=== PATIENT | female | born 1950 | race Caucasian/White ===

== ENCOUNTER 2019-01-15 20:06 | Emergency (ER) | payer MEDICARE ==
[~2019-01-15] VITALS: Ht 162.6 cm; Wt 81.8 kg
[~2019-01-15 20:06] MED LIST: ASPI-611 PO; METO25TA6 PO; NITR0.4T SL; RANI-388 PO; ROSU20TA2 PO
--- NOTE | 2019-01-15 21:23 | NUR ---
PT GIVEN ICE PACKS FOR BOTH ANKLES.
[2019-01-15] MEDS ORDERED: ondansetron 4mg rapidly disintigrating tab PO ONE (21:45)
[2019-01-15] MEDS ORDERED: HYDROcodone/acetaminophen 5mg/325mg tablet PO ONE (21:45)
[2019-01-15] MEDS ORDERED: HYDR-4383 PO (22:07)
[2019-01-15] MEDS ORDERED: ONDA4TAB6 PO (22:07)
--- NOTE | 2019-01-15 23:17 | NUR ---
lock technician is with patient, splinting bilaterl ankle fractures.
--- NOTE | 2019-01-15 23:47 | NUR ---
Crutch/Walker training done with patient.
[2019-01-15] MEDS ORDERED: WALKERFR (23:52)
[2019-01-16 00:02] VITALS: BP 140/75
== END 2019-01-16 00:10 | disposition home or self-care (01) ==
LOC: ER 20:07
DX: S82.852A Displaced trimalleolar fracture of left lower leg, initial encounter for closed fracture (principal); S82.832A Other fracture of upper and lower end of left fibula, initial encounter for closed fracture; S82.831A Other fracture of upper and lower end of right fibula, initial encounter for closed fracture; I10 Essential (primary) hypertension; K21.9 Gastro-esophageal reflux disease without esophagitis; G89.29 Other chronic pain; Z88.6 Allergy status to analgesic agent; Z79.82 Long term (current) use of aspirin; Z79.899 Other long term (current) drug therapy; W01.0XXA Fall on same level from slipping, tripping and stumbling without subsequent striking against object, initial encounter; Y93.01 Activity, walking, marching and hiking; Y92.89 Other specified places as the place of occurrence of the external cause; Y99.8 Other external cause status
CPT/HCPCS: 73610; 99284

== ENCOUNTER 2024-08-12 09:56 | Day surgery (SDC) | payer MEDICARE, OTHER ==
[2024-08-09 10:35] LABS: BASOPHILS # (AUTO) 0.1 X10'3 (0-0.2); BASOPHILS % (AUTO) 0.8 % (0-1); EOSINOPHILS # (AUTO) 0.2 X10'3 (0-0.9); EOSINOPHILS % (AUTO) 3.2 % (0-6); HEMOGLOBIN 13.9 g/dl (12.0-16.0); LYMPHOCYTES % (AUTO) 31.8 % (21-51); MEAN CORPUSCULAR HEMOGLOBIN 30.3 PG (27.0-31.0); MEAN CORPUSCULAR HGB CONC 33.9 g/dL (33.0-36.5); MEAN CORPUSCULAR VOLUME 89.6 FL (78-98); MEAN PLATELET VOLUME 8.7 FL (7.4-10.4); MONOCYTES # (AUTO) 0.5 X10'3 (0-0.9); MONOCYTES % (AUTO) 7.6 % (2-12); NEUTROPHILS # (AUTO) 3.5 X10'3 (1.8-7.7); NEUTROPHILS % (AUTO) 56.6 % (42-75); PLATELET COUNT 214 X10'3 (140-440); RED BLOOD COUNT 4.58 X10'6 (4.20-5.60); RED CELL DISTRIBUTION WIDTH 14.2 % (11.5-14.5); WHITE BLOOD COUNT 6.2 X10'3 (4.5-11.0)
[2024-08-09 10:46] LABS: APTT 28 SECONDS (22-32); PROTHROMBIN TIME 10.2 SECONDS (9.0-12.0)
[2024-08-09 10:49] LABS: ALBUMIN 3.7 G/DL (3.4-5.0); ANION GAP 6 (8-16); BLOOD UREA NITROGEN 15 MG/DL (7-18); CHLORIDE 107 MMOL/L (99-107); CHOL/HDL RATIO 3.1 (0.00-4.99); CHOLESTEROL 201 MG/DL (0-200); GLUCOSE 94 MG/DL (70-104); HDL CHOLESTEROL 65 MG/DL (35-60); LDL CHOLESTEROL 113 MG/DL (50-100); POTASSIUM 4.3 MMOL/L (3.5-5.1); SODIUM 141 MMOL/L (135-145); TOTAL CARBON DIOXIDE 27.7 MMOL/L (24-32); TRIGLYCERIDES 107 MG/DL (20-135); eGFR > 90 ML/MIN
[~2024-08-12] VITALS: Ht 162.6 cm; Wt 85.8 kg
[2024-08-12] VITALS (11 sets, daily range): BP systolic 111–135; BP diastolic 43–75; PULSE 59–80; RESP 12–21; TEMP 98.4; O2SAT 93–97
[~2024-08-12 09:56] MED LIST changes: +HYDR-4383 PO; +LOP25T PO; -METO25TA6 PO; +ONDA4TAB6 PO; +WALKERFR
--- NOTE | 2024-08-12 10:22 | ELECTROCARDIOGRAPH REPORT ---
[facility] Test Date: 2024-08-12 Test Time: 10:19:25 Pat Name: MEGAN WAGNER Department: [facility] Patient ID: [facility]-[id number] Room: Gender: F Executive Vice President Business Development: JUAN LUIS : 1950 Requested By: MARNI MORRELL Order Number: [id number] Reading MD: Dr. RODRIGO Finn Measurements Intervals [place] Rate: 62 P: 56 PA: 162 QRS: 59 QRSD: 95 T: 59 QT: 420 QTc: 427 Interpretive Statements Sinus rhythm Electronically Signed On 08-12-2024 13:29:[address] RODRIGO Finn Please click the below link to view image of tracing.
[2024-08-12] MEDS ORDERED: METO-395 PO (10:28)
[2024-08-12] MEDS ORDERED: OMEP40CA21 PO (10:29)
[2024-08-12] MEDS ORDERED: AMLO5TAB16 PO (10:31)
[2024-08-12] MEDS ORDERED: EZET10TA48 PO (10:31)
[2024-08-12] MEDS ORDERED: DULO30CA52 PO (10:31)
[2024-08-12] MEDS ORDERED: LOSA-418 PO (10:32)
[2024-08-12] MEDS: normal saline 1000ml 1,000 ML IV SCH (11:02)
[2024-08-12] MEDS: LORazepam 0.5 MG tablet PO ONE (11:02)
[2024-08-12] MEDS: diphenhydrAMINE 25mg capsule PO ONE (11:04)
[2024-08-12] MEDS ORDERED: heparin 1,000unit/ml 10ml vial 10 ML ONE (11:56)
[2024-08-12] MEDS ORDERED: verapamil 2.5 mg/ml inj IV ONE (11:56)
[2024-08-12] MEDS ORDERED: iohexol 350MG/ML 100ml bottle IV ONE (11:56)
[2024-08-12] MEDS ORDERED: midazolam 1 mg/ML 2ml injection ONE (11:56)
[2024-08-12] MEDS ORDERED: fentaNYL/PF 50MCG/1 ML 2ML syringe ONE (11:56)
[2024-08-12] MEDS ORDERED: LIDOcaine 1% (10mg/ml) 2ml vial ONE (11:56)
[2024-08-12] MEDS ORDERED: nitroGLYCERIN 500mcg/5mL D5W 5 ML IV ONE (12:16)
[2024-08-12] MEDS ORDERED: HYDROcodone/acetaminophen 10/325mg tab PO PRN (13:40)
[2024-08-12] MEDS ORDERED: HYDROcodone/acetaminophen 5mg/325mg tablet PO PRN (13:40)
--- NOTE | 2024-08-12 13:51 | CARDIAC CATH REPORT ---
Cardiac Cath Report Providers to CC CC: CHANTELLE MORRELL MD Procedure Comments: 1. Left Heart Catheterization 2. Selective Coronary Angiography 3. Right Radial Artery Access Brief History/Indications: 74yo woman with HTN, HLD and recurrent episodes of CP requiring NTG with MPI revealing inferolateral ischemia referred for evaluation. Techniques: After informed consent was obtained, the patient was brought to the cardiac catheterization laboratory and prepped and draped in usual sterile fashion for left heart catheterization and other procedures mentioned above. The right wrist was anesthetized with 1% Lidocaine and the right radial artery accessed via the Seldinger technique after which a 6Fr sheath was placed. Through this a TIG was used to engage the left ventricle, the left coronary artery, and a JR4 to engage the right coronary artery. At the conclusion of the case the sheath was removed and hemostasis obtained with a VascBand. Findings Findings: HEMODYNAMICS: LV: 119/2 mmHg LVEDP: 4 mmHg Ao: 107/55, MAP 77 mmHg CORONARY ARTERIES: Rt Dominant LMCA: Luminal Irregularities LAD: Luminal Irregularities Dx: Luminal Irregularities LCx: Luminal Irregularities OM1: Luminal Irregularities RCA: 20% mid stenosis PDA: Luminal Irregularities PL: Luminal Irregularities Results Results: 1. No significant obstructive CAD 2. RRA Access, closed with VascBand RECOMMENDATIONS: 1. Recommend uptitration of max-tolerated GDMT MARNI MORRELL MD August 12, 2024 13:51
== END 2024-08-12 15:45 | disposition home or self-care (01) ==
LOC: SSTAY O 09:56
PROVIDERS: ATTEND Student in an Organized Health Care Education/Training Program
DX: R94.39 Abnormal result of other cardiovascular function study (principal); I25.118 Atherosclerotic heart disease of native coronary artery with other forms of angina pectoris; I10 Essential (primary) hypertension; Z88.6 Allergy status to analgesic agent; E78.5 Hyperlipidemia, unspecified; Z79.01 Long term (current) use of anticoagulants; Z98.890 Other specified postprocedural states
CPT/HCPCS: 36415; 80048; 80061; 85025; 85610; 85730; 93005; 93458; 99152; A6258; A6402; C1894; J1644; J2003; J2250; J3010; J3490; J7030; Q0163; Q9967; Z7610